=== PATIENT | female | born 1955 | race Caucasian/White ===

== ENCOUNTER 2017-10-23 08:57 | Inpatient (IN) | payer OTHER ==
[~2017-10-23] VITALS: Ht 154.9 cm; Wt 59.6 kg
[~2017-10-23 08:57] MED LIST: ASPIRIN EC81 M1 PO; B COMPLEX1 TA1 PO; FLEXERIL10 MG PO; KETOROLAC TROME10 M1 PO; LISINOP/HCTZ TAB 10- PO; LISINOPRIL-HCT1 EAC2 PO; PREMARIN0.45 MG PO; PROTONIX40 M3 PO; SIMVASTATIN40 M1 PO; VALIUM2 M1 PO; VITAMIN D31000 UNI2 PO
--- NOTE | 2017-10-23 09:14 | ED CARDIAC/CP/PALPITATIONS ---
History of Present Illness General Chief Complaint: Chest Pain Stated Complaint: CP Source: patient Exam Limitations: no limitations Vital Signs & Intake/Output Vital Signs & Intake/Output Vital Signs Date Time Temp Pulse Resp B/P B/P Pulse O2 O2 Flow FiO2 Mean Ox Delivery Rate 10/23 1719 98.3 84 18 138/72 97 Room Air 10/23 1655 Room Air 10/23 1421 98.0 78 18 136/70 98 Room Air 10/23 1235 99 10/23 1232 98.1 75 20 138/75 98 Room Air 10/23 1053 98.6 73 20 130/77 98 Room Air 10/23 0903 96.8 79 18 131/78 98 Room Air Allergies Coded Allergies: erythromycin base (RASH 03/24/16) latex (RASH 03/24/16) Reconcile Medications Aspirin (Ecotrin*) 81 MG TABLET.DR 1 TAB PO Q48 HEART HEALTH (Reported) Cholecalciferol (Vitamin D3) 1,000 UNIT TABLET 1 TAB PO DAILY VITAMIN SUPPORT (Reported) Lisinopril/Hydrochlorothiazide (Lisinopril-Hctz 10-12.5 MG Tab) 10 MG-12.5 MG TABLET 1 TAB PO DAILY BP (Reported) Pantoprazole Sodium (Protonix) 40 MG TABLET.DR 1 TAB PO DAILY ACID REFLUX ( Reported) Paroxetine HCl (Paxil) 10 MG TABLET 1 TAB PO DAILY MENTAL HEALTH (Reported) Simvastatin (Simvastatin*) 40 MG TABLET 1 TAB PO QPM CHOLESTEROL (Reported) Triage Note: 62F TO ED WITH CHEST TIGHTNESS AND HEAVINESS SINCE 0700, DENIES BEING WOKEN FROM SLEEP FROM PAIN. ENDORSES LETHARGY AND SLIGHT DIFF BREATHING. ABLE TO COMPLETE MORNING ADL'S. BLEW HER NOSE AND HAD A BLOODY NOSE. TAKES DAILY ASA 81, HX UT 2012. -N/V/D OR INDIGESTION. LAUGHING AND BRIGHT IN TRIAGE. REPORTS SUBJECTIVE DIAPHORESIS Triage Nurses Notes Reviewed? yes Onset: Abrupt Duration: hour(s): ( 7 am) Timing: recent history Quality/Severity: moderate Location: central Activities at Onset: none HPI: 8-year-old female comes into the emergency room for further evaluation of chest 7 units is been going on since she woke up this morning around 7 AM. Prior history of mild UT she reports. No cardiac stents. History of TIA. On 81 mg aspirin daily. Start with chest heaviness when she woke up this morning. Some associated diaphoresis and dizziness. Shortness of breath with deep breath. Denies any vomiting. Nothing seems to make the symptoms better or worse. Sees Dr. Hightower. (Guillermo Winters) Past History Travel History Traveled to [place] past 21 day No Medical History Any Pertinent Medical History? see below for history Neurological: TIA EENT: NONE Cardiovascular: hypertension, myocardial infarction Respiratory: NONE Gastrointestinal: NONE Hepatic: NONE Renal: NONE Musculoskeletal: NONE Psychiatric: NONE Endocrine: HORMONE REPLACEMENT Blood Disorders: NONE Cancer(s): NONE DETECTIVE SUPERVISOR/Reproductive: OVARIAN CYSTS Surgical History Surgical History: , hysterectomy, OVARIAN CYSTS REMOVED TONSILECTOMY GURDEEP ORR Psychosocial History What is your primary language Hebrew Tobacco Use: Quit >30 days ago Family History Hx Contributory? No (Guillermo Winters) Review of Systems Review of Systems Constitutional: Reports: no symptoms. EENTM: Reports: no symptoms. Respiratory: Reports: see HPI. Cardiovascular: Reports: see HPI. GI: Reports: no symptoms. Genitourinary: Reports: no symptoms. Musculoskeletal: Reports: no symptoms. Skin: Reports: no symptoms. Neurological/Psychological: Reports: no symptoms. Hematologic/Endocrine: Reports: no symptoms. Immunologic/Allergic: Reports: no symptoms. All Other Systems: Reviewed and Negative (Guillermo Winters) Physical Exam Physical Exam General Appearance: well developed/nourished, no apparent distress, alert, awake Head: atraumatic, normal appearance Eyes: Bilateral: normal appearance, EOMI. Ears, Nose, Throat: normal ENT inspection, hearing grossly normal Neck: normal inspection Respiratory: normal breath sounds, no respiratory distress Cardiovascular: regular rate/rhythm Back: normal inspection Extremities: normal inspection Neurologic/Psych: awake, alert, oriented x 3 Skin: intact, normal color Core Measures ACS in differential dx? No CVA/TIA Diagnosis No Sepsis Present: No Sepsis Focused Exam Completed? No (Guillermo Winters) Progress Differential Diagnosis: AMI, atrial fibrillation, costochondritis, hyperkalemia, hypovolemia, musculoskeletal pain, myocarditis, pancreatitis, pericarditis, pneumonia, pneumothorax, pulmonary embolism, PUD/GERD, rib fracture, sepsis Plan of Care: Orders Procedure Date/time Status CBC WITHOUT DIFFERENTIAL 10/24 0600 Active BASIC ELECTROLYTES PLUS BUN&CR 10/24 0600 Active TRNSFRASE ASPART AMINO 10/24 0600 Active TRNSFRAS ALANINE AMINO 10/24 0600 Active Heart Healthy Diet 10/23 D Active TROPONIN LEVEL 10/23 2100 Active EKG 10/23 2100 Active TROPONIN LEVEL 10/23 1800 Active EKG 10/23 1800 Active Weight 10/23 1719 Active Vital Signs 10/23 1719 Active Teach/Educate 10/23 1719 Active Pain Treatment and Response 10/23 1719 Active Nutritional Intake, Monitor 10/23 1719 Active Isolation 10/23 1719 Active Intake & Output 10/23 1719 Active Patient Care Conference 10/23 1719 Active Activity/Ambulation 10/23 1719 Active Pathway - chart 10/23 1405 Active House Staff 10/23 1405 Active Patient Data 10/23 1405 Active Patient Data 10/23 1352 Active ED Holding Orders 10/23 1340 Active Admit to inpatient 10/23 1340 Active Vital Signs 10/23 1340 Active Code Status 10/23 1340 Active THYROID STIMULATING HORMONE 10/23 1223 Complete THYROXINE 10/23 1223 Complete TROPONIN LEVEL 10/23 1220 Complete EKG 10/23 1220 Active TROPONIN LEVEL 10/23 0909 Complete PARTIAL THROMBOPLASTIN TIME 10/23 0909 Complete PROTHROMBIN TIME 10/23 0909 Complete D-DIMER 10/23 0909 Complete COMPREHENSIVE METABOLIC PANEL 10/23 0909 Complete CBC WITHOUT DIFFERENTIAL 10/23 0909 Complete Intake & Output 10/23 0904 Active EKG 10/23 0901 Active Lab Add-on Test 10/23 UNK Active VTE Mechanical Prophylaxis 10/23 UNK Active Telemetry/Epic Anesthesia Analyst 10/23 UNK Active Current Medications Sig/Kain Start time Last Medication Dose Stop Time Status Admin Aspirin Buffered 81 MG Q48 10/25 09 AC (Ecotrin) Pantoprazole Sodium 40 MG DAILY 10/24 0900 AC (Protonix) Paroxetine HCl 10 MG DAILY 10/24 0900 AC (Paxil) Atorvastatin Calcium 20 MG 1700 10/23 1700 AC (Lipitor) Laboratory Tests 10/23/17 1815: Troponin I Pending 10/23/17 1223: Troponin I < 0.01, TSH 0.824, Thyroxine (T4) 6.4 10/23/17 0917: Anion Gap 13, Estimated GFR > 60, BUN/Creatinine Ratio 28.8 H, Glucose 106 H, Calcium 9.8, Total Bilirubin 0.4, AST 42 H, ALT 54 H, Alkaline Phosphatase 86, Troponin I < 0.01, Total Protein 7.8, Albumin 4.5, Globulin 3.3, Albumin/ Globulin Ratio 1.4, CBC w Diff NO MAN DIFF REQ, RBC 4.61, MCV 86.3, MCH 29.4, MCHC 34.1, RDW 13.6, MPV 7.3 L, Gran % 48.8, Lymphocytes % 42.5, Monocytes % 5.9, Eosinophils % 2.4, Basophils % 0.4, Absolute Granulocytes 3.3, Absolute Lymphocytes 2.8, Absolute Monocytes 0.4, Absolute Eosinophils 0.2, Absolute Basophils 0 10/23/17912: D-Dimer High Sensitivty Cancelled 10/23/17909: APTT Cancelled 10/23/17908: PT 10.1, INR 0.93, APTT 29, D-Dimer High Sensitivty < 200 Diagnostic Imaging: Viewed by Me: Radiology Read. Discussed w/RAD: Radiology Read. Radiology Impression: PATIENT: DUC DAVIS PRESENT AGE: 62 PATIENT ACCOUNT NO: [id number] : 57 LOCATION: [facility] ORDERING PHYSICIAN: Guillermo HERNANDEZ SERVICE DATE: 10/23/17 EXAM TYPE: RAD - XRY-CHEST XRAY, TWO VIEWS EXAMINATION: XR CHEST CLINICAL INFORMATION: Chest pain. History of myocardial infarction. COMPARISON: 10/27/2013 TECHNIQUE: 2 views of the chest were obtained. FINDINGS: The lungs are well-inflated and clear. Trachea is midline in position. No evidence of interstitial disease, focal consolidation, mass, pneumothorax or pleural effusion. The cardiomediastinal silhouette and pulmonary teresa have normal size and contour. Mild multilevel discovertebral degenerative change of thoracic spine. The examined upper abdomen is unremarkable. IMPRESSION: Cardiac silhouette is normal. No acute cardiopulmonary disease. DICTATED BY: Sahil Low MD DATE/ TIME DICTATED:10/23/17948 SOLAR INSTALLATION HELPER:GURPREET DATE/TIME TRANSCRIBED: 10/23/17948 CONFIDENTIAL, DO NOT COPY WITHOUT APPROPRIATE AUTHORIZATION. < Electronically signed in Other Vendor System> SIGNED BY: Sahil Low MD 10/23/17952 Initial ED EKG: normal sinus rhythm, rate (71), Borderline T-wave abnormalities Repeat EKG: unchanged (Guillermo Winters) Departure Departure Disposition: STILL A PATIENT Condition: Stable Clinical Impression Primary Impression: Chest pain with moderate risk for cardiac etiology Referrals: Stephanie Acevedo (PCP/Family) Departure Forms: Customer Survey General Discharge Information Admission Note Documentation of Exam: Documentation of any treatments & extenuating circumstances including Concerns Regarding Discharge (functional status, medication knowledge or non-compliance, living conditions, etc.) that warrant an admission rather than observation: Patient will require serial troponins. Cardiac consultation. Cardiac telemetry. Heart score is a 4 which puts her at moderate risk. SPOKE WITH DR BELL computer systems information director. he agrees with plan. (Guillermo Winters) Admission Note Spoke With: Landon Colin MD Documentation of Exam: Documentation of any treatments & extenuating circumstances including Concerns Regarding Discharge (functional status, medication knowledge or non-compliance, living conditions, etc.) that warrant an admission rather than observation: PA/AUTOMATIC CAR WASH ATTENDANT Co-Sign Statement Statement: ED Attending supervision documentation- [X] I saw and evaluated the patient. I have also reviewed all the pertinent lab results and diagnostic results. I agree with the findings and the plan of care as documented in the PA's/AUTOMATIC CAR WASH ATTENDANT's documentation. [] I have reviewed the ED Record and agree with the PA's/AUTOMATIC CAR WASH ATTENDANT's documentation. [] Additions or exceptions (if any) to the PAs/AUTOMATIC CAR WASH ATTENDANT's note and plan are summarized below: [ 62-year-old female with a history of coronary artery disease and TIA in the past Now presents with chest pressure and feeling like an elephant is on her chest. It's intermittent started today. She is being admitted to the hospital for serial troponins and inpatient echocardiogram, cardiology evaluation (Curt Morgan DO) Critical Care Note Critical Care Note Critical Care Time: non-applicable (Guillermo Winters)
[2017-10-23 09:31] LABS: ABSOLUTE BASOPHIL COUNT 0 /CUMM (0.0-0.2); ABSOLUTE EOSINOPHIL COUNT 0.2 /CUMM (0.0-0.7); ABSOLUTE GRANULOCYTE CT 3.3 /CUMM (1.4-6.5); ABSOLUTE LYMPH COUNT 2.8 /CUMM (1.2-3.4); ABSOLUTE MONOCYTE COUNT 0.4 /CUMM (0.10-0.60); BASOPHIL % 0.4 % (0.0-2.0); EOSINOPHIL % 2.4 % (0-5); GRANULOCYTE % 48.8 % (42.2-75.2); HEMATOCRIT 39.7 % (37-47); MEAN CORPUSCULAR HGB 29.4 PG (27.0-31.0); MEAN CORPUSCULAR HGB CONC 34.1 G/DL (33.0-37.0); MEAN CORPUSCULAR VOLUME 86.3 FL (81.0-99.0); MEAN PLATELET VOLUME 7.3 FL (7.4-10.4); PLATELET COUNT 295 /CUMM (130-400); RBC DISTRIBUTION WIDTH 13.6 % (11.5-14.5); RED BLOOD CELL CT 4.61 /CUMM (4.20-5.40); WHITE BLOOD CELL COUNT 6.7 /CUMM (4.8-10.8)
[2017-10-23 09:47] LABS: PT 10.1 SEC (9.4-12.5); PTT 29 SEC (25-37)
--- NOTE | 2017-10-23 09:53 | RADIOLOGY REPORT ---
EXAMINATION: XR CHEST CLINICAL INFORMATION: Chest pain. History of myocardial infarction. COMPARISON: 10/27/2013 TECHNIQUE: 2 views of the chest were obtained. FINDINGS: The lungs are well-inflated and clear. Trachea is midline in position. No evidence of interstitial disease, focal consolidation, mass, pneumothorax or pleural effusion. The cardiomediastinal silhouette and pulmonary teresa have normal size and contour. Mild multilevel discovertebral degenerative change of thoracic spine. The examined upper abdomen is unremarkable. IMPRESSION: Cardiac silhouette is normal. No acute cardiopulmonary disease.
[2017-10-23] MEDS ORDERED: PAXIL10 M1 PO (10:08)
--- NOTE | 2017-10-23 13:58 | History & Physical ---
Karlos TORRE,Jami 10/23/17 1358: General Information and HPI MD Statement: I have seen and personally examined DUC ASHLEY and documented this H&P. The patient is a 62 year old F who presented with a patient stated chief complaint of [chest pain]. Source of Information: patient Exam Limitations: no limitations History of Present Illness: 62 years old female with past medical history of hypertension, TIA and AZ presents to the ED complaining of localized mid-chest tightness 10/10 and feeling that "an elephant is sitting in her chest" which started this morning around 7 AM around one half hour after she woke up. It was associated with sweating and mild dizziness and fatigue in addition the patient complained of bloody nose (with blood trickling down from her nose with blood clots) the patient is currently taking baby aspirin daily and have noticed that she is bleeding more easily and she was trying to decrease aspirin to every other day for that. The patient felt a little better and she decided to go to work. At work his coworkers advised her to come to the ED. Patient reports having "a small AZ" as per the patient words 5 years ago for which she was admitted to the hospital but got outpatient stress test which was normal. Patient also has history of TIA 5 years ago for which she had carotid ultrasound which was also normal. Patient endorses increasing stresses at work for the last week and she feels increasingly tired. Patient denies any similar episodes, headache, nausea, vomiting or diarrhea. The patient is an ex-smoker she quit smoking 20 years ago, occasional alcohol use, denies recreational drug use Family history is positive for her father with ischemic heart disease, he from heart attack in his 70s Patient security orderly is Dr. Carreno Vitals on admission were within normal limits Labs on admission: CBCT was within normal limits, BEP was normal, troponin was less than 0.01, EKG showed normal sinus rhythm, heart rate 65, QTc 416, no STT wave changes Chest x-ray: No acute cardia pulmonary disease Allergies/Medications Allergies: Coded Allergies: erythromycin base (RASH 03/24/16) latex (RASH 03/24/16) Past History Travel History Traveled to [place] past 21 day No Medical History Neurological: TIA EENT: NONE Cardiovascular: hypertension, myocardial infarction Respiratory: NONE Gastrointestinal: NONE Hepatic: NONE Renal: NONE Musculoskeletal: NONE Psychiatric: NONE Endocrine: HORMONE REPLACEMENT Blood Disorders: NONE Cancer(s): NONE APPLICATION PACKAGING CONSULTANT/Reproductive: OVARIAN CYSTS Surgical History Surgical History: , hysterectomy, OVARIAN CYSTS REMOVED TONSILECTOMY GURDEEP JIN Past Family/Social History Family History Relations & Conditions if any FATHER Relation not specified for: FH: CAD (coronary artery disease) Psychosocial History Smoking Status: Former Smoker ETOH Use: occasional use Illicit Drug Use: denies illicit drug use Review of Systems Review of Systems Constitutional: Reports: malaise, weakness. Cardiovascular: Reports: chest pain. Denies: edema, orthopena, palpitations, peripheral edema. Respiratory: Denies: cough, hemoptysis, orthopnea, short of breath, sputum production. GI: Denies: bloating, constipation, diarrhea, distention, nausea, vomiting. Genitourinary: Denies: no symptoms. Musculoskeletal: Denies: no symptoms. Skin: Denies: no symptoms. Neurological/Psychological: Denies: no symptoms. Exam & Diagnostic Data Last 24 Hrs of Vital Signs/I&O Vital Signs Date Time Temp Pulse Resp B/P B/P Pulse O2 O2 Flow FiO2 Mean Ox Delivery Rate 10/23 1421 98.0 78 18 136/70 98 Room Air 10/23 1235 99 10/23 1232 98.1 75 20 138/75 98 Room Air 10/23 1053 98.6 73 20 130/77 98 Room Air 10/23 0903 96.8 79 18 131/78 98 Room Air Physical Exam General Appearance Alert, Oriented X3, Cooperative, No Acute Distress HEENT Atraumatic, PERRLA, EOMI, Mucous Membr. moist/pink Neck Supple, No JVD Cardiovascular Normal S1, Normal S2, No Murmurs Lungs Clear to Auscultation Abdomen Normal Bowel Sounds, Soft, No Tenderness Neurological Normal Speech, Strength at 5/5 X4 Ext, Normal Tone, Sensation Intact, Cranial Nerves 3-12 NL Extremities No Clubbing, No Cyanosis, No Edema Vascular Normal Pulses Assessment/Plan Assessment: 62 years old female with past medical history of hypertension, TIA and AZ presents to the ED complaining of localized mid-chest tightness 10/10 and feeling that "an elephant is sitting in her chest" which started this morning around 7 AM around one half hour after she woke up. It was associated with sweating and mild dizziness and fatigue in addition the patient complained of bloody nose. Patient received neb treatment in the ED which helped her chest tightness little bit. On admissions vitals and labs were stable, given her past history of AZ and family history of CAD in her father, the patient will need to be admitted to telemetry to rule out ACS. First set of tropes and EKG were negative Problem list: Chest pain-rule out ACS Epistaxis History of hypertension, AZ, TIA Plan: Admit to telemetry Continuous telemetry monitoring Vitals every shift Rule out ACS with serial tropes and EKG Cardiology consult appreciated Echocardiogram Continue her meds including aspirin 81, lisinopril hydrochlorothiazide, paroxetine, simvastatin, pantoprazole Full code Heart healthy diet DVT prophylaxis with subcutaneous heparin As Ranked By This Provider Problem List: 1. Chest pain with moderate risk for cardiac etiology Core Measures/Misc (01/27) Acute Coronary Syndrome ACS Diagnosis: No Congestive Heart Failure Congestive Heart Failure Diagnosis No Cerebrovascular Accident CVA/TIA Diagnosis: No VTE (View Protocol) VTE Risk Factors Age>40 No Mechanical VTE Prophylaxis d/t N/A MechProphylax Ordered No VTE Pharm Prophylaxis d/t NA PharmProphylax ordered Sepsis (View protocol) Sepsis Present: No If YES complete Sepsis Event Note If YES complete Sepsis Event Note Winsome TORRE,[facility] 10/23/17 6044: General Information and HPI Allergies/Medications Home Med list Aspirin (Ecotrin*) 81 MG TABLET.DR 1 TAB PO Q48 HEART HEALTH (Reported) Celecoxib (Celebrex) 100 MG CAPSULE 100 MG PO Q6 PRN CHEST PAIN . Cholecalciferol (Vitamin D3) 1,000 UNIT TABLET 1 TAB PO DAILY VITAMIN SUPPORT (Reported) Hydrochlorothiazide 12.5 MG CAPSULE 12.5 MG PO DAILY BP . Losartan Potassium 25 MG TABLET 25 MG PO DAILY BP . Pantoprazole Sodium (Protonix) 40 MG TABLET.DR 1 TAB PO DAILY ACID REFLUX ( Reported) Paroxetine HCl (Paxil) 10 MG TABLET 1 TAB PO DAILY MENTAL HEALTH (Reported) Simvastatin (Simvastatin*) 40 MG TABLET 1 TAB PO QPM CHOLESTEROL (Reported) Core Measures/Misc (01/27) Sepsis (View protocol) If YES complete Sepsis Event Note If YES complete Sepsis Event Note Resident Review Statement Resident Statement: examined this patient, discussed with social media intern Other Findings: H Ms Ashley is a pleasant 62-year-old female with past medical history of hypertension, hyperlipidemia, TIA and coronary artery disease who presented to the emergency department on 10/23/2017 complaining of chest pain. Patient states that over the last few days she has been under an increasingly amount of stress at the workplace. She states that she often feels overwhelmed with the amount of responsibility she has. This morning the patient woke up at approximately 5 AM and felt that her chest felt uncomfortable. She was able to conduct her activities of daily living, have a coffee and breakfast and get to work. She did endorse an episode of epistaxis which he attributes to beeing on an aspirin. While at work chest pressure began to feel like an "elephant on her chest". She described the chest discomfort as a 10 out of 10 in severity. Her coworker was able to bring her into the emergency department for further workup. Patient's primary care physician is Dr. Barreto (previously Dr Mitchell). Patient's security orderly is Dr. Rivera. She last saw her security orderly approximately one year ago. She reports good medication compliance. 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 R On review of systems the patient denied any fever, chills, nausea, vomiting. She did endorse some diaphoresis. E Temperature 96.8, pulse 79, respirations 18, blood pressure 131/78, pulse oxygen 98% on room air. General Appearance: well developed/nourished, no apparent distress, alert, awake Head: atraumatic, normal appearance Eyes: Bilateral: normal appearance, EOMI. Ears, Nose, Throat: normal ENT inspection, hearing grossly normal Neck: normal inspection Respiratory: normal breath sounds, no respiratory distress Cardiovascular: regular rate/rhythm Back: normal inspection Extremities: normal inspection Neurologic/Psych: awake, alert, oriented x 3 Skin: intact, normal color L WBC 6.7, H&H 13.6 and 39.7, platelets 295, sodium 143, potassium 4.5, BUN: 23, creatinine 0.8. AST 42, ALT 54, I As Above A Ms Ashley is a pleasant 62-year-old female with past medical history of hypertension, hyperlipidemia, TIA and coronary artery disease who presented to the emergency department on 10/23/2017 complaining of chest pain. Given her multiple risk factors it would be prudent do rule her out for an acute event and assess her need for additional cardiovascular therapy. Rule out ACS Transaminitis. History of hypertension, History of mood disorder. -Admit the patient to telemetry. -Serial troponins and EKG. If troponins begin to rise, may consider beginning patient on IV heparin and begin dual antiplatelet therapy consider patient for catheterization. -Obtain formal cardiology consultation with the group of Dr. Fadi Rivera. -Echocardiogram to rule out any valvular abnormalities or elevations and pressure. CBC, BEP, AST and ALT in a.m. -If liver enzymes continue to be elevated may consider an abdominal ultrasound or reducing patient's statin dose. -Continue home medications. -Dvt PPX with Lovenox -Patient is a full code. Sean TORRE,Manuel 10/23/171956: Core Measures/Misc (01/27) Sepsis (View protocol) If YES complete Sepsis Event Note If YES complete Sepsis Event Note Attending MD Review Statement Attending Statement Attending MD Statement: examined this patient, discuss w/resident/PA/AIRCRAFT RIGGING AND CONTROLS MECHANIC, agreed w/resident/PA/AIRCRAFT RIGGING AND CONTROLS MECHANIC, reviewed EMR data (avail)
[2017-10-23 17:19] VITALS: BP 138/72
[2017-10-23 22:56] VITALS: BP 118/68
[2017-10-24 06:11] VITALS: BP 120/62
[2017-10-24 07:54] LABS: ABSOLUTE BASOPHIL COUNT 0 /CUMM (0.0-0.2); ABSOLUTE EOSINOPHIL COUNT 0.2 /CUMM (0.0-0.7); ABSOLUTE GRANULOCYTE CT 3.1 /CUMM (1.4-6.5); ABSOLUTE LYMPH COUNT 2.3 /CUMM (1.2-3.4); ABSOLUTE MONOCYTE COUNT 0.5 /CUMM (0.10-0.60); BASOPHIL % 0.7 % (0.0-2.0); GRANULOCYTE % 50.2 % (42.2-75.2); MEAN CORPUSCULAR HGB 29.5 PG (27.0-31.0); MEAN CORPUSCULAR HGB CONC 34.1 G/DL (33.0-37.0); MEAN CORPUSCULAR VOLUME 86.6 FL (81.0-99.0); MEAN PLATELET VOLUME 7.6 FL (7.4-10.4); PLATELET COUNT 270 /CUMM (130-400); RBC DISTRIBUTION WIDTH 13.7 % (11.5-14.5); RED BLOOD CELL CT 4.04 /CUMM (4.20-5.40); WHITE BLOOD CELL COUNT 6.1 /CUMM (4.8-10.8)
--- NOTE | 2017-10-24 07:58 | PN- Housestaff ---
See Addendum Subjective Follow-up For: Costochondritis Tele-Events Since Last Visit: Normal sinus rhythm, 7080 Subjective: No overnight events. Patient says that when she woke up yesterday morning, she had chest pain that felt like an elephant sitting on her chest. The pain was worse when breathing in deeply. She says she has had a chronic cough for about 6 months that she thinks is related to lisinopril. Her chest pain lasted a couple hours but has since resolved. Overnight she has done well this morning she feels back to normal. She does feel little tired because she did not sleep well. No shortness of breath now or chest pain now. No nausea, vomiting, diarrhea, fever, or other issues. Review of Systems Constitutional: Reports: no symptoms. EENTM: Reports: no symptoms. Cardiovascular: Reports: see HPI. Respiratory: Reports: no symptoms. Gastrointestinal: Reports: no symptoms. Genitourinary: Reports: no symptoms. Musculoskeletal: Reports: no symptoms. Skin: Reports: no symptoms. Neurological/Psychological: Reports: no symptoms. Hematologic/Endocrine: Reports: no symptoms. Immunologic/Allergic: Reports: no symptoms. Objective Last 24 Hrs of Vital Signs/I&O Vital Signs Date Time Temp Pulse Resp B/P B/P Pulse O2 O2 Flow FiO2 Mean Ox Delivery Rate 10/24 0611 97.8 60 16 120/62 98 10/23 2256 97.7 72 16 118/68 98 Room Air 10/23 1719 98.3 84 18 138/72 97 Room Air 10/23 1655 Room Air 10/23 1421 98.0 78 18 136/70 98 Room Air 10/23 1235 99 10/23 1232 98.1 75 20 138/75 98 Room Air 10/23 1053 98.6 73 20 130/77 98 Room Air 10/23 0903 96.8 79 18 131/78 98 Room Air Intake & Output 10/24 0800 10/24 0000 10/23 1600 Intake Total 120 120 Output Total Balance 120 120 Intake, Oral 120 120 Patient 59.562 kg Weight Weight Bed scale Measurement Method Physical Exam General Appearance: Alert, Oriented X3, Cooperative, No Acute Distress Cardiovascular: Regular Rate, Normal S1, Normal S2, chest wall tender to palpation Lungs: Clear to Auscultation Abdomen: Normal Bowel Sounds, Soft, No Tenderness Extremities: No Edema, Normal Pulses, No Tenderness/Swelling Current Medications: Current Medications Sig/Kain Start time Last Medication Dose Route Stop Time Status Admin Albuterol Sulfate 3 ML ONCE ONE 10/23 1230 DC 10/23 INH 10/23 1231 1234 Aspirin 0 .STK-MED ONE 10/23 1235 DC PO Aspirin 325 MG ONCE ONE 10/23 1230 DC 10/23 PO 10/23 1231 1232 Aspirin Buffered 81 MG Q48 10/25 0900 AC PO Atorvastatin Calcium 20 MG 1700 10/23 1700 AC PO Enoxaparin Sodium 30 MG ONCE ONE 10/23 1600 DC SC 10/23 1601 Pantoprazole Sodium 40 MG DAILY 10/24 0900 AC IV Paroxetine HCl 10 MG DAILY 10/24 0900 AC PO Last 24 Hrs of Lab/Pravin Results Last 24 Hrs of Labs/Mics: Laboratory Tests 10/24/17 0615: Anion Gap 11, Estimated GFR > 60, BUN/Creatinine Ratio 26.3 H, AST 36, ALT 45, CBC w Diff Pending, WBC Pending, RBC Pending, Hgb Pending, Hct Pending, MCV Pending, MCH Pending, MCHC Pending, RDW Pending, Plt Count Pending, MPV Pending 10/23/17 2155: Troponin I < 0.01 10/23/17 1815: Troponin I < 0.01 10/23/17 1223: Troponin I < 0.01, TSH 0.824, Thyroxine (T4) 6.4 10/23/17 0917: Anion Gap 13, Estimated GFR > 60, BUN/Creatinine Ratio 28.8 H, Glucose 106 H, Calcium 9.8, Total Bilirubin 0.4, AST 42 H, ALT 54 H, Alkaline Phosphatase 86, Troponin I < 0.01, Total Protein 7.8, Albumin 4.5, Globulin 3.3, Albumin/ Globulin Ratio 1.4, CBC w Diff NO MAN DIFF REQ, RBC 4.61, MCV 86.3, MCH 29.4, MCHC 34.1, RDW 13.6, MPV 7.3 L, Gran % 48.8, Lymphocytes % 42.5, Monocytes % 5.9, Eosinophils % 2.4, Basophils % 0.4, Absolute Granulocytes 3.3, Absolute Lymphocytes 2.8, Absolute Monocytes 0.4, Absolute Eosinophils 0.2, Absolute Basophils 0 10/23/17 0913: D-Dimer High Sensitivty Cancelled 10/23/17 0910: APTT Cancelled 10/23/17 0909: PT 10.1, INR 0.93, APTT 29, D-Dimer High Sensitivty < 200 Assessment/Plan Assessment: Ms Ashley is a pleasant 62-year-old female with past medical history of hypertension, hyperlipidemia, TIA and coronary artery disease who presented to the emergency department on 10/23/2017 complaining of chest pain. Problem list: 1. Costochondritis 2. Epistaxis #Costochondritis: Patient presents with chest pain and history of coronary artery disease. Her chest pain has since resolved and EKG and troponins 4 has been negative. She has tenderness to chest wall and a history of chronic cough. Most likely this was costochondritis. -Appreciate cardiology recommendations -Continue cardiac medications -Lipid panel -Continue omeprazole #Epistaxis: Patient gets nosebleeds every once in a while and she had one yesterday morning. It has since resolved. -Continue to monitor #Chronic medical problems: Continue other medications DVT prophylaxis with enoxaparin Heart healthy diet Full code Problem List: 1. Chest pain Pain Ratin Pain Location: no Pain Goal: Remain pain free Pain Plan: see a/p Tomorrow's Labs & Rationales: no
--- NOTE | 2017-10-24 08:23 | Cons- Cardiology ---
General Information and HPI Consulting Request Date of Consult: 10/24/17 Requested By: Manuel Estrada MD Reason for Consult: Chest pain Source of Information: patient History of Present Illness: 62 years old female with past medical history of hypertension, TIA and MO presents to the ED complaining of localized mid-chest tightness 02/19 and feeling that "an elephant is sitting in her chest" which started this morning around 7 AM around one half hour after she woke up. It was associated with sweating and mild dizziness and fatigue in addition the patient complained of bloody nose (with blood trickling down from her nose with blood clots) the patient is currently taking baby aspirin daily and have noticed that she is bleeding more easily and she was trying to decrease aspirin to every other day for that. The patient felt a little better and she decided to go to work. At work his coworkers advised her to come to the ED. Patient reports having "a small MO" as per the patient words 5 years ago for which she was admitted to the hospital but got outpatient stress test which was normal. Patient also has history of TIA 5 years ago for which she had carotid ultrasound which was also normal. Patient endorses increasing stresses at work for the last week and she feels increasingly tired. Patient denies any similar episodes, headache, nausea, vomiting or diarrhea. The patient is an ex-smoker she quit smoking 20 years ago, occasional alcohol use, denies recreational drug use Family history is positive for her father with ischemic heart disease, he from heart attack in his 70s The above history was obtained by the admitting resident. Patient could perform that at 7 AM yesterday she woke up and had chest pressure described as a vice. The symptoms did not interfere with her activity and she continued to go to work when she was told by a coworker to go to the hospital. Total duration of symptoms several hours. In the hospital she was observed admitted serial EKGs were unchanged and serial troponin levels were negative. She is otherwise active without formal exercise climbing stairs exerting himself no chest pain no unusual shortness of breath. She admits to tremendous stress at work and is constantly thinking of work issues. Allergies/Medications Allergies: Coded Allergies: erythromycin base (RASH 03/24/16) latex (RASH 03/24/16) Home Med List: Aspirin (Ecotrin*) 81 MG TABLET. 1 TAB PO Q48 HEART HEALTH (Reported) Cholecalciferol (Vitamin D3) 1,000 UNIT TABLET 1 TAB PO DAILY VITAMIN SUPPORT (Reported) Lisinopril/Hydrochlorothiazide (Lisinopril-Hctz 10-12.5 MG Tab) 10 MG-12.5 MG TABLET 1 TAB PO DAILY BP (Reported) Pantoprazole Sodium (Protonix) 40 MG TABLET.DR 1 TAB PO DAILY ACID REFLUX ( Reported) Paroxetine HCl (Paxil) 10 MG TABLET 1 TAB PO DAILY MENTAL HEALTH (Reported) Simvastatin (Simvastatin*) 40 MG TABLET 1 TAB PO QPM CHOLESTEROL (Reported) Current Medications: Current Medications Sig/Kain Start time Last Medication Dose Route Stop Time Status Admin Albuterol Sulfate 3 ML ONCE ONE 10/23 1230 DC 10/23 INH 10/23 1231 1234 Aspirin 0 .STK-MED ONE 10/23 1235 DC PO Aspirin 325 MG ONCE ONE 10/23 1230 DC 10/23 PO 10/23 1231 1232 Aspirin Buffered 81 MG Q48 10/25 0900 AC PO Atorvastatin Calcium 20 MG 1700 10/23 1700 AC PO Enoxaparin Sodium 30 MG ONCE ONE 10/23 1600 DC SC 10/23 1601 Pantoprazole Sodium 40 MG DAILY 10/24 0900 AC IV Paroxetine HCl 10 MG DAILY 10/24 0900 AC PO Review of Systems Review of Systems Constitutional: Reports: see HPI. EENTM: Reports: see HPI. Cardiovascular: Reports: see HPI. Respiratory: Reports: see HPI. GI: Denies: no symptoms. Genitourinary: Denies: no symptoms. Musculoskeletal: Denies: no symptoms. Skin: Denies: no symptoms. Neurological/Psychological: Denies: no symptoms. Hematologic/Endocrine: Denies: no symptoms. Immunologic/Allergic: Denies: no symptoms. 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 Home Smoking Status: Former Smoker ETOH Use: occasional use Illicit Drug Use: denies illicit drug use Exam & Diagnostic Data Vital Signs and I&O Vital Signs Date Time Temp Pulse Resp B/P B/P Pulse O2 O2 Flow FiO2 Mean Ox Delivery Rate 10/24 0611 97.8 60 16 120/62 98 10/23 2256 97.7 72 16 118/68 98 Room Air 10/23 1719 98.3 84 18 138/72 97 Room Air 10/23 1655 Room Air 10/23 1421 98.0 78 18 136/70 98 Room Air 10/23 1235 99 10/23 1232 98.1 75 20 138/75 98 Room Air 10/23 1053 98.6 73 20 130/77 98 Room Air 10/23 0903 96.8 79 18 131/78 98 Room Air Intake & Output 10/24 1600 10/24 0800 10/24 0000 10/23 1600 10/23 0800 10/23 0000 Intake Total 120 120 Output Total Balance 120 120 Intake, Oral 120 120 Patient 131 lb Weight Weight Bed scale Measurement Method Physical Exam: On physical exam the patient appears comfortable eating breakfast Head normocephalic atraumatic Eyes sclera anicteric conjunctiva showed no Extraocular muscles were normal Neck no jugular venous tension no thyroid masses no palpable nodes Chest lungs were clear bilaterally Heart regular rhythm S2 is physiologically split no murmurs Abdomen soft no organomegaly bowel sounds normal Extremities no clubbing cyanosis or edema Neurological no gross motor or sensory deficits. Labs/Pravin Results: Laboratory Tests 10/2415 2155 1815 1223 Chemistry Sodium (137 - 145 mmol/L) 142 Potassium (3.5 - 5.1 mmol/L) 4.2 Chloride (98 - 107 mmol/L) 100 Carbon Dioxide (22 - 30 mmol/L) 31 H Anion Gap (5 - 16) 11 BUN (7 - 17 mg/dL) 21 H Creatinine (0.5 - 1.0 mg/dL) 0.8 Estimated GFR (>60 ml/min) > 60 BUN/Creatinine Ratio (7 - 25 %) 26.3 H AST (14 - 36 U/L) 36 ALT (9 - 52 U/L) 45 Troponin I (< 0.11 ng/ml) < 0.01 < 0.01 < 0.01 TSH (0.270 - 4.200 uIU/mL) 0.824 Thyroxine (T4) (4.5 - 10.9 ug/dL) 6.4 Hematology CBC w Diff NO MAN DIFF REQ WBC (4.8 - 10.8 /CUMM) 6.1 RBC (4.20 - 5.40 /CUMM) 4.04 L Hgb (12.0 - 16.0 G/DL) 11.9 L Hct (37 - 47 %) 35.0 L MCV (81.0 - 99.0 FL) 86.6 MCH (27.0 - 31.0 PG) 29.5 MCHC (33.0 - 37.0 G/DL) 34.1 RDW (11.5 - 14.5 %) 13.7 Plt Count (130 - 400 /CUMM) 270 MPV (7.4 - 10.4 FL) 7.6 Gran % (42.2 - 75.2 %) 50.2 Lymphocytes % (20.5 - 51.1 %) 38.0 Monocytes % (1.7 - 9.3 %) 8.1 Eosinophils % (0 - 5 %) 3.0 Basophils % (0.0 - 2.0 %) 0.7 Absolute Granulocytes (1.4 - 6.5 /CUMM) 3.1 Absolute Lymphocytes (1.2 - 3.4 /CUMM) 2.3 Absolute Monocytes (0.10 - 0.60 /CUMM) 0.5 Absolute Eosinophils (0.0 - 0.7 /CUMM) 0.2 Absolute Basophils (0.0 - 0.2 /CUMM) 0 10/23 10/23 10/23 0917 0913 0910 Chemistry Sodium (137 - 145 mmol/L) 143 Potassium (3.5 - 5.1 mmol/L) 4.5 Chloride (98 - 107 mmol/L) 100 Carbon Dioxide (22 - 30 mmol/L) 30 Anion Gap (5 - 16) 13 BUN (7 - 17 mg/dL) 23 H Creatinine (0.5 - 1.0 mg/dL) 0.8 Estimated GFR (>60 ml/min) > 60 BUN/Creatinine Ratio (7 - 25 %) 28.8 H Glucose (65 - 99 mg/dL) 106 H Calcium (8.4 - 10.2 mg/dL) 9.8 Total Bilirubin (0.2 - 1.3 mg/dL) 0.4 AST (14 - 36 U/L) 42 H ALT (9 - 52 U/L) 54 H Alkaline Phosphatase (<127 U/L) 86 Troponin I (< 0.11 ng/ml) < 0.01 Total Protein (6.3 - 8.2 g/dL) 7.8 Albumin (3.5 - 5.0 g/dL) 4.5 Globulin (1.9 - 4.2 gm/dL) 3.3 Albumin/Globulin Ratio (1.1 - 2.2 %) 1.4 Coagulation APTT Cancelled D-Dimer High Sensitivty Cancelled Hematology CBC w Diff NO MAN DIFF REQ WBC (4.8 - 10.8 /CUMM) 6.7 RBC (4.20 - 5.40 /CUMM) 4.61 Hgb (12.0 - 16.0 G/DL) 13.6 Hct (37 - 47 %) 39.7 MCV (81.0 - 99.0 FL) 86.3 MCH (27.0 - 31.0 PG) 29.4 MCHC (33.0 - 37.0 G/DL) 34.1 RDW (11.5 - 14.5 %) 13.6 Plt Count (130 - 400 /CUMM) 295 MPV (7.4 - 10.4 FL) 7.3 L Gran % (42.2 - 75.2 %) 48.8 Lymphocytes % (20.5 - 51.1 %) 42.5 Monocytes % (1.7 - 9.3 %) 5.9 Eosinophils % (0 - 5 %) 2.4 Basophils % (0.0 - 2.0 %) 0.4 Absolute Granulocytes (1.4 - 6.5 /CUMM) 3.3 Absolute Lymphocytes (1.2 - 3.4 /CUMM) 2.8 Absolute Monocytes (0.10 - 0.60 /CUMM) 0.4 Absolute Eosinophils (0.0 - 0.7 /CUMM) 0.2 Absolute Basophils (0.0 - 0.2 /CUMM) 0 10/23 0909 Coagulation PT (9.4 - 12.5 SEC) 10.1 INR (0.90 - 1.19) 0.93 APTT (25 - 37 SEC) 29 D-Dimer High Sensitivty (0 - 243 ng/ml) < 200 Diagnostic Data EKG Results Sinus rhythm incomplete right bundle branch block probably within normal limits no serial change CXR Results Clear lung eastman no acute abnormality Assessment/Plan Assessment/Plan In summary this 62-year-old female was admitted with the following problems 1. Atypical chest discomfort in that the duration has been several hours without objective evidence of myocardial ischemia or infarction. Her last stress test was about 5 years ago. 2. By history, history of TIA although neurological workup was essentially -5 years ago. Symptoms at that time included some speech issues and left-sided numbness. According to patient carotid ultrasound and workup was reportedly negative and she was cleared by neurology. 3. History of hypertension 4. History of hyperlipidemia being treated 5. History of epistaxis probably related to aspirin I would suggest we do an echocardiogram. If left ventricular function is normal and no regional abnormalities I would discharge this patient to outpatient stress echocardiogram. Continue to ambulate. Decrease aspirin to 81 mg a day until stress test thereafter 3 times a week. Consult Acknowledgment - Thank you for your consult request.
[2017-10-24] MEDS ORDERED: HYDROCHLOROTH12.5 M3 PO ×2 (09:49→13:12)
[2017-10-24] MEDS ORDERED: LOSARTAN POTASS25 M1 PO ×2 (09:49→13:12)
[2017-10-24] MEDS ORDERED: CELEBREX100 M1 PO ×2 (09:49→13:12)
--- NOTE | 2017-10-24 09:50 | Patient Discharge Instructions ---
Discharge Instructions General Discharge Information You were seen/treated for: Costochondritis Watch for these problems: Fever, chest pain, shortness of breath Special Instructions: Please take all medications as directed. Please follow up with primary care. Diet Continue normal diet: Yes Activity Full Activity/No Limits: Yes Acute Coronary Syndrome Inclusion Criteria At DC or during hospital stay patient has or had the following: ACS DIAGNOSIS No Discharge Core Measures Meds if any: Prescribed or Continued at Discharge Meds if any: NOT Prescribed or Continued at Discharge Congestive Heart Failure Inclusion Criteria At DC or during hospital stay patient has or had the following: CHF DIAGNOSIS No Discharge Core Measures Meds if any: Prescribed or Continued at Discharge Meds if any: NOT Prescribed or Continued at Discharge Cerebrovascular accident Inclusion Criteria At DC or during hospital stay patient has or had the following: CVA/TIA Diagnosis No Discharge Core Measures Meds if any: Prescribed or Continued at Discharge Meds if any: NOT Prescribed or Continued at Discharge Venous thromboembolism Inclusion Criteria VTE Diagnosis No VTE Type NONE VTE Confirmed by (Test) NONE Discharge Core Measures - Per Current guidelines, there needs to be overlap - treatment for the first 5 days of Warfarin therapy. - If discharged on Warfarin prior to 5 days of - overlap therapy, the patient will need to be - assessed for post discharge needs including - *Post discharge parental anticoagulation - *Warfarin and/or parental anticoagulation education - *Follow up date to check INR post discharge At least 5 days overlap therapy as Inpatient No Meds if any: Prescribed or Continued at Discharge Note: Overlap Therapy is Warfarin and Anticoagulant Meds if any: NOT Prescribed or Continued at Discharge
--- NOTE | 2017-10-24 12:07 | ECHOCARDIOGRAM REPORT ---
DUC DAVIS Age: 62 : 1955 Gender: F Exam Date: 10/24/2017 10:27 Exam Location: [address] Ht (in): 61 Wt (lb): 131 BSA: 1.61 BP: 120 / 62 Ordering Physician: Yusef Cummings MD Referring Physician: Yusef Cummings MD Technologist: Juan Jose Limon [facility] Room Number: [id number] Indications: Chest Pain Rhythm: Sinus Technical Quality: fair FINDINGS Left Ventricle Normal global left ventricular size, wall thickness, systolic function with no obvious regional wall motion abnormalities. Normal left ventricular ejection fraction estimated at 60-65%. Right Ventricle Normal right ventricular size and function. Right Atrium Normal right atrial size. Left Atrium Normal left atrial size. Mitral Valve Mitral valve normal in structure and function. Trace mitral regurgitation. Aortic Valve Aortic valve is normal in structure and function. Tricuspid Valve Tricuspid valve is normal in structure and function. Pulmonic Valve Pulmonic valve not well visualized, grossly normal. Pericardium No pericardial effusion. Great Vessels Normal size aortic root and proximal ascending aorta. CONCLUSIONS Normal left and right ventricular systolic function. No significant valvular abnormalities noted. Fadi Rivera M.D. (Electronically Signed) Final Date: 24 October 2017 12:07 MEASUREMENTS (Male / Female) Normal Values 2D ECHO LV Diastolic Diameter PLAX 4.0 cm 4.2 - 5.9 / 3.9 - 5.3 cm LV Systolic Diameter PLAX 2.4 cm 2.1 - 4.0 cm LV Fractional Shortening PLAX 40.0 % 25 - 46 % LV Ejection Fraction 2D Teich 71.2 % IVS Diastolic Thickness 0.9 cm LVPW Diastolic Thickness 0.9 cm LV Relative Wall Thickness 0.5 RV Internal Dim ED PLAX 2.8 cm 1.9 - 3.8 cm LVOT Diameter 1.7 cm Aortic Root Diameter 2.9 cm LA Systolic Diameter LX 2.2 cm 3.0 - 4.0 / 2.7 - 3.8 cm Ascending Aorta Diameter 2.6 cm DOPPLER AV Peak Velocity 114.0 cm/s AV Peak Gradient 5.2 mmHg AV Mean Velocity 80.0 cm/s AV Mean Gradient 3.0 mmHg AV Velocity Time Integral 23.9 cm LVOT Peak Velocity 82.7 cm/s LVOT Peak Gradient 2.7 mmHg LVOT Mean Velocity 50.6 cm/s LVOT Mean Gradient 1.0 mmHg LVOT Velocity Time Integral 17.1 cm LVOT Stroke Volume 38.8 cm AV Area Cont Eq vti 1.6 cm AV Area Cont Eq pk 1.6 cm MV Peak Velocity 73.1 cm/s MV Peak Gradient 2.1 mmHg MV Mean Velocity 45.1 cm/s MV Mean Gradient 1.0 mmHg Mitral E Point Velocity 78.5 cm/s Mitral A Point Velocity 68.1 cm/s Mitral E to A Ratio 1.2 MV PHT Velocity 78.7 cm/s MV Deceleration [place] 233.0 cm/s MV Pressure Half Time 101.3 ms MV Area PHT 2.2 cm MV Deceleration Time 225.0 ms PV Peak Velocity 78.6 cm/s PV Peak Gradient 2.5 mmHg PV Mean Velocity 49.9 cm/s PV Mean Gradient 1.0 mmHg PV Velocity Time Integral 16.3 cm
--- NOTE | 2017-10-24 13:18 | Discharge Summary ---
Visit Information Visit Dates Admission Date: 10/23/17 Discharge Date: 10/24/17 Hospital Course Course Attending Physician: Manuel Estrada MD Primary Care Physician: Stephanie Acevedo Hospital Course: Ms Ashley is a pleasant 62-year-old female with past medical history of hypertension, hyperlipidemia, TIA and coronary artery disease who presented to the emergency department on 10/23/2017 complaining of chest pain. The patient was admitted to telemetry and treated for the following problems: 1. Costochondritis 2. Epistaxis #Costochondritis: Patient presented with chest pain and history of coronary artery disease. Chest x-ray was negative. Her chest pain has since resolved and EKG and troponins 4 has been negative. She has tenderness to chest wall and a history of chronic cough. Most likely this was costochondritis. We are switching her lisinopril to losartan and giving her prescription for celecoxib. Cardiology was consulted and recommended a TTE. Her echocardiogram was normal. She will follow-up with cardiology to have an outpatient stress test. #Epistaxis: Patient gets nosebleeds every once in a while and she had one yesterday morning. It has since resolved. #Chronic medical problems: Her other home medications were continued. Allergies: Coded Allergies: erythromycin base (RASH 03/24/16) latex (RASH 03/24/16) Disposition Summary Disposition Principal Diagnosis: 1. Costochondritis Additional Diagnosis: 2. Epistaxis Discharge Disposition: home or self care Discharge Instructions General Discharge Information Code Status: Full Code Patient's Diet: Heart healthy Patient's Activity: As tolerated Follow-Up Instructions/Appts: Please take all medications as directed. Please follow-up with primary care and cardiology. Medications at Discharge Discharge Medications: Stop taking the following medications: Lisinopril/Hydrochlorothiazide (Lisinopril-Hctz 10-12.5 MG Tab) 10 MG-12.5 MG TABLET ORAL DAILY Qty = 30 Continue taking these medications: Aspirin (Ecotrin*) 81 MG TABLET. 1 Tablet ORAL EVERY 48 HOURS (Every 2 days) Comments: NOT GIVEN AT HOSPITAL. Cholecalciferol (Vitamin D3) 1,000 UNIT TABLET 1 Tablet ORAL DAILY Comments: NOT GIVEN IN HOSPITAL. Pantoprazole Sodium (Protonix) 40 MG TABLET. 1 Tablet ORAL DAILY Qty = 30 Comments: GIVEN PRILOSEC IN HOSPITAL 10/24/17 @0940am Simvastatin (Simvastatin*) 40 MG TABLET 1 Tablet ORAL Every night Qty = 30 Comments: NOT GIVEN IN HOSPITAL Paroxetine HCl (Paxil) 10 MG TABLET 1 Tablet ORAL DAILY Qty = 30 Comments: Last Taken: 10/24/17 Time: 0940am Start taking the following new medications: Losartan Potassium (Losartan Potassium) 25 MG TABLET 25 Milligram ORAL DAILY Qty = 30 No Refills Instructions: . Comments: Last Taken: 10/24/17 Time: 0940am Celecoxib (Celebrex) 100 MG CAPSULE 100 Milligram ORAL EVERY SIX HOURS as needed for CHEST PAIN Qty = 30 No Refills Instructions: . Comments: Last Taken: 10/24/17 Time: 0940 am Hydrochlorothiazide (Hydrochlorothiazide) 12.5 MG CAPSULE 12.5 Milligram ORAL DAILY Qty = 30 No Refills Instructions: . Comments: Last Taken: 10/24/17 Time:0940 am Copies To: Katja OTRRE,Fadi HERNANDEZ,Stephanie Núñez
[2017-10-24 14:00] VITALS: BP 130/70
== END 2017-10-24 14:15 | DRG 206 ==
LOC: ERH 08:57 → ERHI 13:40 → ENRESERV 14:20 → ENTRNSPT 16:25 → 1NO 16:55 → CMPTRNSPT 17:04 → ENPENDDIS 10-24 13:11 → 1NO 10-24 14:15
PROVIDERS: Physician Assistant Medical; Student in an Organized Health Care Education/Training Program
DX: M94.0 Chondrocostal junction syndrome [Tietze] (principal); I10 Essential (primary) hypertension; E78.5 Hyperlipidemia, unspecified; I25.10 Atherosclerotic heart disease of native coronary artery without angina pectoris; Z86.73 Personal history of transient ischemic attack (TIA), and cerebral infarction without residual deficits; I45.10 Unspecified right bundle-branch block; I25.2 Old myocardial infarction; Z87.891 Personal history of nicotine dependence
CPT/HCPCS: 1NSP; 36592; 71046; 82436; 93005; 93010; 93306; J1650